=== PATIENT | male | born 1950 | race Caucasian/White ===

== ENCOUNTER 2018-04-02 08:18 | Day surgery (SDC) | payer MEDICARE ==
[~2018-04-02 08:18] MED LIST: BABY ASPIRIN81 MG PO; FLUTICASONE50 MCG; FLUZONE SPLT1 M1 IM; MAALOX/BEN PO; MULTIVITAMIN PO; OMEPRAZOLE40 MG PO; PROTONIX40 M2 PO; [UNRECOGNIZED DRUG - OTHER] PO
[2018-04-02 10:57] VITALS: BP 101/62
== END 2018-04-02 11:10 | disposition home or self-care (01) ==
LOC: ENDO 08:18
PROVIDERS: ATTEND Surgery
PROC: 0DJD8ZZ Inspection of Lower Intestinal Tract, Via Natural or Artificial Opening Endoscopic (ICD-10-PCS; principal; 2018-04-02)
DX: Z12.11 Encounter for screening for malignant neoplasm of colon (principal); K57.30 Diverticulosis of large intestine without perforation or abscess without bleeding; Z80.0 Family history of malignant neoplasm of digestive organs

== ENCOUNTER 2021-02-03 17:26 | Emergency (ER) | payer OTHER, MEDICARE ==
[~2021-02-03] VITALS: Ht 175.3 cm; Wt 86.3 kg
[2021-02-03 18:10] LABS: HEMATOCRIT 43.7 % (39.0-50.0); IMMATURE GRANULOCYTES 0.1 % (0.0-5.0); MEAN CELL VOLUME 89.2 fL CALC (80.0-100.0); MEAN CORPUSCULAR HGB 28.6 pG CALC (26.0-32.0); NEUT# 3.72 thou/uL (1.82-7.42); RED BLOOD COUNT 4.9 mill/uL (4.70-6.10); RED CELL DISTRI WIDTH 13.5 % (11.5-15.5)
[2021-02-03 18:27] LABS: ALBUMIN 4.3 g/dL (3.2-5.0); ALKALINE PHOSPHATASE 57 u/l (38-126); AMYLASE 105 u/l (30-110); ANION GAP 14 (6-22 (CALC)); BILIRUBIN, TOTAL 0.3 mg/dL (0.0-1.4); BUN 20 mg/dL (8-23); BUN/CREATININE RATIO 18 (12-20 (CALC)); CARBON DIOXIDE 26 mmol/l (22-30); CHLORIDE 102 mmol/l (95-108); CREATININE 1.1 mg/dL (0.7-1.3); ETHYL ALCOHOL 0 mg/dl (0-30); GFR > 60 ML/MIN (>=60 (CALC)); GFR FOR AFR.AMER. > 60 ML/MIN (>=60 (CALC)); LIPASE 132 u/l (23-300); SGOT/AST 26 u/l (19-48); SODIUM 138 mmol/l (137-146); TOTAL PROTEIN 7.5 g/dL (6.3-8.2)
[2021-02-03 18:28] LABS: ACT PARTIAL THROMBO TIME 23.9 SECONDS (20.0-32.5); PROTHROMBIN TIME 10.4 SECONDS (9.0-12.5)
[2021-02-03 18:44] LABS: URINE BILIRUBIN - DIPSTICK NEGATIVE (NEGATIVE); URINE BLOOD DIPSTICK NEGATIVE (NEGATIVE); URINE COLOR YELLOW; URINE GLUCOSE - DIPSTICK NEGATIVE (NEGATIVE); URINE KETONE NEGATIVE (NEGATIVE); URINE LEUK ESTERASE NEGATIVE (NEGATIVE); URINE PROTEIN - DIPSTICK NEGATIVE (NEG-TRACE); URINE UROBILINOGEN - DIPSTICK 0.2 E.U./dL (0.2)
[2021-02-03 18:45] LABS: URINE NITRITE - DIPSTICK NEGATIVE (Negative)
[2021-02-03 19:22] VITALS: BP 146/85
== END 2021-02-03 19:35 | disposition left against medical advice (07) | DRG 313 ==
LOC: ED 17:26 → ED-I 18:16 → ED 18:16 → ED-I 18:31 → ED 19:35
DX: R07.9 Chest pain, unspecified (principal); S16.1XXA Strain of muscle, fascia and tendon at neck level, initial encounter; V43.52XA Car driver injured in collision with other type car in traffic accident, initial encounter; Z91.19 Patient's noncompliance with other medical treatment and regimen
CPT/HCPCS: Q9967

== ENCOUNTER 2022-03-12 09:12 | Day surgery (SDC) | payer MEDICARE ==
[~2022-03-12] VITALS: Ht 175.3 cm; Wt 86.2 kg
[~2022-03-12 09:12] MED LIST changes: +MULTI 50+ PO; +VITAMIN C500 M1 PO; +[UNRECOGNIZED DRUG - OTHER] PO
[2022-03-12 11:09] VITALS: BP 137/84
== END 2022-03-12 12:44 | disposition home or self-care (01) ==
LOC: ENDO 09:12 → ORM 09:45 → ENDO 12:44
PROVIDERS: ATTEND Internal Medicine Gastroenterology
PROC: 0DB98ZX Excision of Duodenum, Via Natural or Artificial Opening Endoscopic, Diagnostic (ICD-10-PCS; principal; 2022-03-12)
PROC: 0DB78ZX Excision of Stomach, Pylorus, Via Natural or Artificial Opening Endoscopic, Diagnostic (ICD-10-PCS; 2022-03-12)
DX: K29.80 Duodenitis without bleeding (principal); K29.70 Gastritis, unspecified, without bleeding; K31.9 Disease of stomach and duodenum, unspecified; Z90.49 Acquired absence of other specified parts of digestive tract; Z80.0 Family history of malignant neoplasm of digestive organs

== ENCOUNTER 2022-08-06 08:03 | Day surgery (SDC) | payer MEDICARE ==
[~2022-08-06] VITALS: Ht 175.3 cm; Wt 87.5 kg
[2022-08-06 11:07] VITALS: BP 167/93
== END 2022-08-06 10:56 | disposition home or self-care (01) ==
LOC: ENDO 08:03 → ORM 11:30 → ENDO 11:30
PROVIDERS: ATTEND Internal Medicine Gastroenterology
PROC: 0DBN8ZX Excision of Sigmoid Colon, Via Natural or Artificial Opening Endoscopic, Diagnostic (ICD-10-PCS; principal; 2022-08-06)
DX: K57.30 Diverticulosis of large intestine without perforation or abscess without bleeding (principal); K50.10 Crohn's disease of large intestine without complications; K64.8 Other hemorrhoids; Z80.0 Family history of malignant neoplasm of digestive organs

== ENCOUNTER 2022-08-06 10:56 | Emergency (ER) | payer MEDICARE ==
[~2022-08-06] VITALS: Ht 175.3 cm; Wt 104.3 kg
[2022-08-06 11:37] LABS: BASO% 0.2 % (0-3); EOS% 1.8 % (0-8); HEMATOCRIT 44.7 % (39.0-50.0); HEMOGLOBIN 14.1 g/dl (14.0-18.0); IMMATURE GRANULOCYTES 0.2 % (0.0-5.0); LYMPH% 32.7 % (15-41); MEAN CELL VOLUME 87.3 fL CALC (80.0-100.0); MEAN CORPUSCULAR HGB 27.5 pG CALC (26.0-32.0); MEAN CORPUSCULAR HGB CONC 31.5 g/dL CAL (32.0-36.0); MONO% 8.1 % (2-13); NEUT# 3.26 thou/uL (1.82-7.42); RED BLOOD COUNT 5.12 mill/uL (4.70-6.10); RED CELL DISTRI WIDTH 15.2 % (11.5-15.5)
[2022-08-06 12:09] LABS: ALBUMIN 4.6 g/dL (3.2-5.0); ALKALINE PHOSPHATASE 72 u/l (38-126); ANION GAP 11 (6-22 (CALC)); BILIRUBIN, TOTAL 0.5 mg/dL (0.0-1.4); BUN 14 mg/dL (8-23); BUN/CREATININE RATIO 14 (12-20 (CALC)); CARBON DIOXIDE 26 mmol/l (22-30); CHLORIDE 106 mmol/l (95-108); GFR FOR AFR.AMER. > 60 ML/MIN (>=60 (CALC)); GFR OTHER RACES > 60 ML/MIN (>=60 (CALC)); POTASSIUM 4.2 mmol/l (3.5-5.1); SGOT/AST 37 u/l (19-48); SODIUM 139 mmol/l (137-146); TOTAL PROTEIN 7.8 g/dL (6.3-8.2)
[2022-08-06 14:15] VITALS: BP 167/93
== END 2022-08-06 14:15 | disposition home or self-care (01) ==
LOC: ED 10:56
PROVIDERS: Family Medicine
PROC: 0HQ1XZZ Repair Face Skin, External Approach (ICD-10-PCS; principal; 2022-08-06)
DX: S01.81XA Laceration without foreign body of other part of head, initial encounter (principal); W18.39XA Other fall on same level, initial encounter; Y92.238 Other place in hospital as the place of occurrence of the external cause; Z98.890 Other specified postprocedural states